=== PATIENT | female | born 1990 | race Two or more races ===

== ENCOUNTER 2022-02-26 17:21 | Inpatient (IN) | payer OTHER ==
[2022-02-26 18:18] VITALS: BMI 19.9
[2022-02-26] MEDS ORDERED: guaiFENesin 200 MG/10 ML 10 ML UNIT-DOSE CUPS PO PRN (19:21)
[2022-02-26] MEDS ORDERED: POLYETHYLENE GLYCOL (HEALTHYLAX) 3350 17 GM PACKET PO PRN (19:21)
[2022-02-26] MEDS ORDERED: LOPERAMIDE HCL 2 MG CAPSULE PO PRN (19:21)
[2022-02-26] MEDS ORDERED: BENZOCAINE/MENTHOL (CHLORASEPTIC ) LOZENGE MM PRN (19:21)
[2022-02-26] MEDS ORDERED: MAGNESIUM HYDROX 2400MG/30ML ORAL SUSPENSION 30 ML CUP PO PRN (19:21)
[2022-02-26] MEDS ORDERED: ACETAMINOPHEN 325 MG TABLET (FP) PO PRN (19:21)
[2022-02-26] MEDS ORDERED: P-EPHED 60MG/TRIPROLIDI 2.5MG TABLET PO PRN (19:21)
[2022-02-26] MEDS ORDERED: MAG HYDROX/AL HYDROX/SIMETH 30 ML UNIT-DOSE CUP PO PRN (19:21)
[2022-02-26] MEDS ORDERED: IBUPROFEN 400 MG TABLET (FP) PO PRN (19:21)
[2022-02-26] MEDS ORDERED: TUBERCULIN PPD 5 TU/0.1ML VIAL ID ONE (21:39)
[2022-02-26] MEDS: GABAPENTIN 100 MG CAPSULE PO SCH (21:46)
[2022-02-26] MEDS: THIAMINE HCL 100 MG TABLET (FP) PO SCH (21:46)
[2022-02-26] MEDS: MELATONIN 5 MG TABLETS PO PRN (21:47)
[2022-02-26] MEDS ORDERED: OLANZapine 5 MG TABLET PO ONE (22:00)
[2022-02-27] MEDS: GABAPENTIN 100 MG CAPSULE PO SCH ×3 (06:34→21:25)
[2022-02-27] MEDS: PRENATAL VITAMINS W/ FOLIC ACID TABLET (FP) PO SCH (09:35)
[2022-02-27] MEDS ORDERED: ARIPiprazole 5 MG TABLET PO ONE (10:20)
[2022-02-27] MEDS ORDERED: ARIPiprazole 10 MG TABLET PO ONE (10:20)
[2022-02-27 12:08] LABS: EPI CELLS 15 /uL (0-25.1); HYALINE CASTS 0 /uL (0-3.1); PH,URINE 5.5 (5.0-8.0); URINE APPEARANCE CLOUDY; URINE BACTERIA 430 /uL (0-1359); URINE BILIRUBIN NEGATIVE (NEGATIVE); URINE COLOR YELLOW; URINE GLUCOSE (UA) NEGATIVE (NEGATIVE); URINE KETONE NEGATIVE (NEGATIVE); URINE LEUK ESTERASE TRACE (NEGATIVE); URINE NITRITE NEGATIVE (NEGATIVE); URINE PROTEIN NEGATIVE (NEGATIVE); URINE RBC 9 /uL (0-23.9); URINE UROBILINOGEN 0.2 mg/dL (0.2-1.0); URINE WBC 30 /uL (0-25.8)
[2022-02-27] MEDS: OLANZapine 5 MG TABLET PO SCH (21:25)
[2022-02-27] MEDS: THIAMINE HCL 100 MG TABLET (FP) PO SCH (21:25)
[2022-02-28] MEDS: GABAPENTIN 100 MG CAPSULE PO SCH ×3 (06:18→21:11)
[2022-02-28] MEDS: ARIPiprazole 10 MG TABLET PO SCH (09:50)
[2022-02-28] MEDS: PRENATAL VITAMINS W/ FOLIC ACID TABLET (FP) PO SCH (09:51)
[2022-02-28] MEDS: OLANZapine 5 MG TABLET PO SCH (21:11)
[2022-02-28] MEDS: MELATONIN 5 MG TABLETS PO PRN (21:11)
[2022-02-28] MEDS: THIAMINE HCL 100 MG TABLET (FP) PO SCH (21:11)
[2022-03-01] MEDS: GABAPENTIN 100 MG CAPSULE PO SCH ×3 (06:28→21:14)
[2022-03-01] MEDS: PRENATAL VITAMINS W/ FOLIC ACID TABLET (FP) PO SCH (09:47)
[2022-03-01] MEDS: ARIPiprazole 10 MG TABLET PO SCH (09:47)
[2022-03-01 11:50] LABS: BASO % 0.6 % (0-2.0); EOS % 1.3 % (0-4.5); HEMATOCRIT 39.2 % (32.4-45.2); HEMOGLOBIN 12.7 GM/dL (10.7-15.3); LYMPH % 41.1 % (8-40); MCHC 32.5 g/dl (32.0-36.0); MEAN CELL VOLUME 101.6 fl (80-96); MEAN PLT VOLUME 6.9 fl (7.5-11.1); MONO % 7.6 % (3.8-10.2); NEUT % 49.4 % (42.8-82.8); PLATELET COUNT 382 10^3/uL (134-434); RBC 3.86 M/mm3 (3.60-5.2); RDW 12.9 % (11.6-15.6); WHITE BLOOD COUNT 6.7 K/mm3 (4.0-10.0)
[2022-03-01 11:55] LABS: ALBUMIN 3.5 g/dl (3.4-5.0); BLOOD UREA NITROGEN 19.5 mg/dL (7-18); CALCIUM 9.2 mg/dL (8.5-10.1)
[2022-03-01 11:58] LABS: CREATININE 0.8 mg/dL (0.55-1.3)
[2022-03-01 12:00] LABS: BILIRUBIN,TOTAL 0.3 mg/dL (0.2-1); TOT PROT 7.2 g/dl (6.4-8.2)
[2022-03-01] MEDS: THIAMINE HCL 100 MG TABLET (FP) PO SCH (21:14)
[2022-03-01] MEDS: OLANZapine 5 MG TABLET PO SCH (21:15)
[2022-03-02] MEDS: GABAPENTIN 100 MG CAPSULE PO SCH ×3 (06:22→21:18)
[2022-03-02] MEDS: PRENATAL VITAMINS W/ FOLIC ACID TABLET (FP) PO SCH (09:46)
[2022-03-02] MEDS: ARIPiprazole 10 MG TABLET PO SCH (09:46)
[2022-03-02] MEDS: THIAMINE HCL 100 MG TABLET (FP) PO SCH (21:18)
[2022-03-02] MEDS: OLANZapine 5 MG TABLET PO SCH (21:18)
[2022-03-03] MEDS: GABAPENTIN 100 MG CAPSULE PO SCH ×3 (06:51→21:22)
[2022-03-03] MEDS: PRENATAL VITAMINS W/ FOLIC ACID TABLET (FP) PO SCH (09:47)
[2022-03-03] MEDS: ARIPiprazole 10 MG TABLET PO SCH (09:47)
[2022-03-03] MEDS: OLANZapine 5 MG TABLET PO SCH (21:22)
[2022-03-03] MEDS: THIAMINE HCL 100 MG TABLET (FP) PO SCH (21:22)
[2022-03-04] MEDS: GABAPENTIN 100 MG CAPSULE PO SCH ×3 (06:10→21:23)
[2022-03-04] MEDS: ARIPiprazole 10 MG TABLET PO SCH (09:31)
[2022-03-04] MEDS: PRENATAL VITAMINS W/ FOLIC ACID TABLET (FP) PO SCH (09:31)
[2022-03-04] MEDS: MELATONIN 5 MG TABLETS PO PRN (21:23)
[2022-03-04] MEDS: OLANZapine 5 MG TABLET PO SCH (21:23)
[2022-03-04] MEDS: THIAMINE HCL 100 MG TABLET (FP) PO SCH (21:23)
[2022-03-05] MEDS: GABAPENTIN 100 MG CAPSULE PO SCH (06:21)
[2022-03-05 07:18] VITALS: BP 93/65; PULSE 85; RESP 18; TEMP 97.1
[2022-03-05] MEDS: ARIPiprazole 10 MG TABLET PO SCH (09:37)
[2022-03-05] MEDS: PRENATAL VITAMINS W/ FOLIC ACID TABLET (FP) PO SCH (09:37)
== END 2022-03-05 12:17 | disposition home or self-care (01) | DRG 772 ==
LOC: YASAS 17:21 → Y5N 20:41
PROVIDERS: ADMIT Allergy & Immunology; ATTEND Psychiatry & Neurology Pain Medicine
PROC: HZ42ZZZ Group Counseling for Substance Abuse Treatment, Cognitive-Behavioral (ICD-10-PCS; principal; 2022-02-26)
DX: F14.20 Cocaine dependence, uncomplicated (principal); F13.20 Sedative, hypnotic or anxiolytic dependence, uncomplicated; F19.24 Other psychoactive substance dependence with psychoactive substance-induced mood disorder; F41.9 Anxiety disorder, unspecified; Z86.2 Personal history of diseases of the blood and blood-forming organs and certain disorders involving the immune mechanism; Z86.69 Personal history of other diseases of the nervous system and sense organs; Z28.310 Unvaccinated for COVID-19; Z28.9 Immunization not carried out for unspecified reason
CPT/HCPCS: 36415; 80053; 81003; 81025; 84703; 85025; 86780; 87811; C9803-CS; U0003; U0005